=== PATIENT | female | born 1945 | race Caucasian/White ===

== ENCOUNTER 2016-12-30 16:01 | Emergency (ER) | payer MEDICARE, OTHER ==
[~2016-12-30] VITALS: Ht 160 cm; Wt 84.1 kg
[2016-12-30 16:06] VITALS: BP 144/97; PULSE 93; RESP 20; O2SAT 93
[2016-12-30 17:15] VITALS: BP 139/80; PULSE 81; RESP 20; O2SAT 95
--- NOTE | 2016-12-30 17:17 | ED.REPORT ---
HPI-Dyspnea / Wheezing Date of Service Dec 30, 2016 ED Provider: Dr. Donovan Pt is a 71 y/o female w/ a hx of asthma, presenting to the ED c/o cough onset 10 days ago. She c/o associated SOB, mild phlegm production, pleuritic chest pain, wheezing. Pt denies fever, chills, nausea, vomiting, diarrhea, abdominal pain. She was seen a few weeks ago for cold-like symptoms and diagnosed with bronchitis and asthma exacerbation. She was prescribed antibiotics and prednisone with complete relief. Her symptoms today are similar to that time. She has been using her inhaler every 3 hours without much relief. She also believes she is developing a UTI today. Nursing Notes Stated Complaint: BREATHING TROUBLE AND COUGH Chief Complaint: Respiratory Complaints Nursing Notes Reviewed: Yes Allergies: Coded Allergies: No Known Allergies (Unverified , 12/30/16) Scheduled Amoxicillin/Clav K 875-125 mg (Augmentin 875-125 mg) 1 Each Tablet 1 TABLET PO BID Azithromycin (Zithromax (Z-Freddy)) 250 Mg Tablet 250 MG PO DIRECTED Take two tablets by mouth on day 1, then take one tablet daily on days 2 through 5. Prednisone (PredniSONE) 20 Mg Tablet 40 MG PO DAILY General Time Seen by MD: 17:16 Chief Complaint Cough Hx Obtained From: Patient Arrived By: Walk-in Sudden in Onset?: No Onset Occurred: More than a week ago... Symptom Duration: Since onset Location: : Chest left: Chest right Quality: Pleuritic Severity: Current: Mild Severity: Maximum: Mild Recent Healthcare: Previous diagnosis Similar Sx Previous: Yes Past Medical History Past Medical History Asthma Past Surgical History None reported Smoking History Unknown if Ever Smoker Social History Other Social History: Ambulatory Status Independent Review of Systems Constitutional: Denies: Chills, Fever Respiratory: Reports: Non-productive cough, Pleuritic pain, Prod cough, green, Prod cough, yellow, Shortness of breath, Wheezing Cardiovascular: Denies: Chest pain, Dyspnea on exertion Complete sys rev & neg: except as marked. GI: Denies: Abdominal pain, Diarrhea, Nausea, Vomiting Female: Reports: Dysuria, Urinary frequency Physical Exam Initial Vital Signs Vital Signs (First) Date Time Temp Pulse Resp B/P Pulse Ox O2 Delivery O2 Flow Rate FiO2 12/30/16 16:06 36.5 93 20 144/97 93 Room Air Initial VS: Reviewed, Vital signs abnormal Head / Eyes: Atraumatic, Normocephalic, PERRL ENT: Mucous membranes moist, Conjunctiva normal, No scleral icterus Abdomen / GI: Soft, Non-tender Extremities: Vascular intact, Neuro intact, No swelling, No tenderness Skin: Warm, Dry, No cyanosis Neurologic: Alert, Oriented, Nonfocal Psychiatric: Mood/affect normal, Behavior normal, Normal thought content General/Constitutional: Awake, Alert, No acute distress, Cooperative, Not toxic appearing Neck: Atraumatic, Supple, No meningismus, Full range of motion, No JVD Respiratory / Chest: Atraumatic, Breath sounds = bilat, No respiratory distress , No retractions, No stridor, No chest tenderness Diffuse expiratory wheezes Cardiovascular: Heart rate NL, Regular rhythm, Heart sounds NL, No gallop, No murmurs, No rubs, Cap refill not delayed, Peripheral circulation NL Interpretation & Diagnostics Lab Results Interpretation Test 12/30/16 18:08 X-Ray Chest Interpretation Chest Xray Interpretation: IMPRESSION: No acute cardiopulmonary disease. Dictated by: Carmen Cortez M.D. on 12/30/2016 at 17:43 Approved by: Carmen Cortez M.D. on 12/30/2016 at 17:43 View: Portable, 1 view Interpretation / Wet Read by: Interpret - Radiologist Re-Eval/Medical Decision Med Decision/Clinical Course History and physical exam are consistent with URI probable bronchitis given the prolonged period of cough with sputum as well as urinary tract infection, patient's overall clinically well-appearing with stable vitals, does not seem to represent CHF, acute RI, pulmonary embolism, pyelonephritis or any other life-threatening pathology. Patient is agreeable to discharge. We will treat with Augmentin and azithromycin to cover both genitourinary and respiratory pathogens. Steroids prescribed. Strict return and follow-up precautions given. Re-Evaluation/Progress : Time of Eval: 18:13 Re-Evaluation/Progress Note: Pt rechecked. She is feeling much better. Informed pt of plan for treatment. Pt understands and agrees with plan for treatment. F/U and RTER warnings given. All questions addressed. Counseled Regarding: Diagnosis, Lab results, Need for follow-up, When/why to return to ED Discharge & Departure Impression: Primary Impression: URI (upper respiratory infection) URI type: unspecified URI Qualified Code: J06.9 - Acute upper respiratory infection, unspecified Additional Impressions: Asthma exacerbation UTI (urinary tract infection) Urinary tract infection type: site unspecified Hematuria presence: without hematuria Qualified Code: N39.0 - Urinary tract infection, site not specified Disposition: Home Discharge Condition All VS Reviewed: Yes Condition: Stable Patient Instructions: Asthma (ED), Upper Respiratory Infection (ED) Additional Instructions: You likely have a bronchitis and also have a urinary tract infection. Augmentin and azithromycin as well as prednisone as prescribed. Use your inhalers up to every 4 hours as needed. Call your primary care doctor tomorrow morning for close follow-up appointment and return to the ER if worse. Piteribe Attestation Portions of this note were transcribed by Damion Correia. I, Dr. Donovan personally performed the history, physical exam and medical decision-making; I reviewed and confirmed the accuracy of the information in the transcribed note. Signed by Khari Perez, 12/30/16 - [id number] Donovan DO Dec 30, 2016 17:17 DAMION CORREIA Dec 30, 2016 17:27
[2016-12-30] MEDS ORDERED: Albuterol-Ipratropium 3 mL Inhalation Solution NEB ONE (17:30)
[2016-12-30] MEDS ORDERED: predniSONE 20 mg Tablet PO ONE (17:30)
[2016-12-30] MEDS ORDERED: Albuterol 2.5 mg/3 mL Inhalation Solution NEB ONE (17:30)
--- NOTE | 2016-12-30 17:45 | DRSVH ---
PROCEDURE: X-RAY CHEST, TWO VIEWS ([id number]) INDICATIONS: shortness of breath TECHNIQUE: 2 views of the chest were acquired. COMPARISON: None. FINDINGS: Surgical changes and devices: Surgical clips in the left axilla. Lungs and pleura: No pleural effusions or pneumothorax. Lungs are clear. Mediastinum: Mediastinal contours are normal. Heart size is normal. Bones and chest wall: No suspicious bony abnormalities. Soft tissues appear unremarkable. IMPRESSION: No acute cardiopulmonary disease. Dictated by: Carmen Cortez M.D. on 12/30/2016 at 17:43 Approved by: Carmen Cortez M.D. on 12/30/2016 at 17:43
[2016-12-30] MEDS ORDERED: AMOX-366 PO (18:10)
[2016-12-30] MEDS ORDERED: AZIT250T4 PO (18:10)
[2016-12-30] MEDS ORDERED: PRE20 PO (18:10)
[2016-12-30 18:35] LABS: APPEARANCE,URINE HAZY (CLEAR,HAZY); COLOR,URINE YELLOW (YELLOW); OCCULT BLOOD,URINE LARGE (NEGATIVE); PH,URINE 5.5 (5.0-8.0); UROBILINOGEN,URINE NORMAL (NORMAL)
[2016-12-30 18:45] VITALS: BP 145/92; PULSE 89; RESP 15; O2SAT 97
== END 2016-12-30 18:30 | disposition home or self-care (01) ==
LOC: SED 16:01
DX: J06.9 Acute upper respiratory infection, unspecified (principal); J45.901 Unspecified asthma with (acute) exacerbation; N39.0 Urinary tract infection, site not specified